=== PATIENT | male | born 1995 | race Two or more races ===

== ENCOUNTER 2018-12-05 11:21 | Emergency (ER) | payer OTHER, SELFPAY ==
[~2018-12-05] VITALS: Ht 185.4 cm; Wt 90.9 kg
[2018-12-05] MEDS ORDERED: ADACEL/BOOSTRIX VACCINE (DIPHTH/PERTUSS/ACELL/TETANUS)0.5ML SYR (90715) IM ONE (17:15)
[2018-12-05] MEDS ORDERED: LIDOCAINE 1% MDV 20ML VIAL IM ONE (17:15)
--- NOTE | 2018-12-05 18:50 | REPVR ---
EXAM: CT Maxillofacial Without Contrast EXAM DATE/TIME: 12/05/2018 6:34 PM CLINICAL HISTORY: 23 years old, male; Jaw pain; Additional info: Jaw pain after fall, struck face/jaw on ground TECHNIQUE: Imaging protocol: Axial computed tomography images of the face without intravenous contrast. Coronal and sagittal reformatted images were created and reviewed. Radiation optimization: All CT scans at this facility use at least one of these dose optimization techniques: automated exposure control; mA and/or kV adjustment per patient size (includes targeted exams where dose is matched to clinical indication); or iterative reconstruction. COMPARISON: No relevant prior studies available. FINDINGS: Orbits: No acute intraorbital abnormality. Globes are unremarkable. Sinuses: Normal. No air-fluid levels. Bones/joints: Fracture and right paramedial aspect of the medial process of the maxilla. Soft tissues: No significant facial soft tissue swelling. IMPRESSION: Fracture and right paramedial aspect of the medial process of the maxilla. Soft tissue swelling upper lip. Electronically signed by: Tonny Coelho On 12/05/2018 18:49:38 PM
--- NOTE | 2018-12-05 18:52 | REPVR ---
EXAM: CT Head Without Contrast EXAM DATE/TIME: 12/05/2018 6:34 PM CLINICAL HISTORY: 23 years old, male; Other: Jaw pain; Additional info: Jaw pain after fall, struck face/jaw on ground TECHNIQUE: Imaging protocol: Axial computed tomography images of the head without contrast. Radiation optimization: All CT scans at this facility use at least one of these dose optimization techniques: automated exposure control; mA and/or kV adjustment per patient size (includes targeted exams where dose is matched to clinical indication); or iterative reconstruction. COMPARISON: No relevant prior studies available. FINDINGS: Brain: Normal. No hemorrhage. Unremarkable white matter. No mass effect. Ventricles: Normal. No ventriculomegaly. Bones/joints: Unremarkable. No acute fracture. Sinuses: Visualized sinuses are unremarkable. No fluid levels. Mastoid air cells: Visualized mastoid air cells are well aerated. No mastoid effusion. Soft tissues: Unremarkable. IMPRESSION: No acute intracranial abnormality. Electronically signed by: Tonny Coelho On 12/05/2018 18:52:23 PM
[2018-12-05] MEDS ORDERED: AUGM875T28 PO (19:46)
[2018-12-05] MEDS ORDERED: NAPR-837 PO (19:46)
[2018-12-05 19:59] VITALS: BP 111/59
== END 2018-12-05 20:01 | disposition home or self-care (01) ==
LOC: M ED 11:21
DX: S02.40CA Maxillary fracture, right side, initial encounter for closed fracture (principal); S01.511A Laceration without foreign body of lip, initial encounter; S02.5XXA Fracture of tooth (traumatic), initial encounter for closed fracture; Y04.8XXA Assault by other bodily force, initial encounter; V00.131A Fall from skateboard, initial encounter; Y92.410 Unspecified street and highway as the place of occurrence of the external cause; F17.200 Nicotine dependence, unspecified, uncomplicated

== ENCOUNTER 2023-12-20 14:58 | Inpatient (IN) | payer MEDICAID, OTHER, SELFPAY ==
[~2023-12-20] VITALS: Ht 188 cm; Wt 82.1 kg
[~2023-12-20 14:58] MED LIST: AUGM875T28 PO; NAPR-837 PO
[2023-12-20 16:17] LABS: HEMATOCRIT 43.3 % (42.0-52.0); HEMOGLOBIN 14.9 g/dl (13.5-17.5); MEAN CORPUSCULAR HEMOGLOBIN 30.6 pg (27.0-33.0); MEAN CORPUSCULAR HGB CONC 34.4 g/dl (32.0-36.5); MEAN CORPUSCULAR VOLUME 88.9 fl (80.0-96.0); PLATELET COUNT, AUTOMATED 211 10^3/uL (150-450); RED BLOOD COUNT 4.87 10^6/uL (4.30-6.10); WHITE BLOOD COUNT 5.9 10^3/uL (4.0-10.0)
[2023-12-20 16:38] LABS: ETHYL ALCOHOL (ETHANOL) < 0.003 % (0.000-0.010)
[2023-12-20 16:39] LABS: SALICYLATE LEVEL < 3.0 MG/DL (<30)
[2023-12-20 16:40] LABS: ALBUMIN 4.2 G/DL (3.2-5.2); ALKALINE PHOSPHATASE 76 U/L (46-116); ALT/SGPT 104 U/L (7.0-40); AST/SGOT 266 U/L (<34); BILIRUBIN,DIRECT 0.1 MG/DL (<0.4); BILIRUBIN,TOTAL 0.4 MG/DL (0.3-1.2); BLOOD UREA NITROGEN 18 MG/DL (9-23); CALCIUM LEVEL 9.8 MG/DL (8.5-10.1); CARBON DIOXIDE LEVEL 28 MMOL/L (20-31); CHLORIDE LEVEL 109 MMOL/L (98-107); CREATININE FOR GFR 0.97 MG/DL (0.70-1.30); GLOMERULAR FILTRATION RATE > 60.0 (>60); GLUCOSE, FASTING 95 MG/DL (60-100); POTASSIUM SERUM 4.1 MMOL/L (3.5-5.1); SODIUM LEVEL 144 MMOL/L (136-145); TOTAL PROTEIN 6.8 G/DL (5.7-8.2)
[2023-12-20 16:41] LABS: THYROID STIMULATING HORMONE 1.185 uIU/ML (0.55-4.78)
[2023-12-20 16:47] LABS: AMPHETAMINES LEVEL URINE NEGATIVE (NEGATIVE); BARBITURATES URINE NEGATIVE (NEGATIVE); COCAINE METABOLITE URINE NEGATIVE (NEGATIVE); METHADONE URINE NEGATIVE (NEGATIVE); OPIATES URINE NEGATIVE (NEGATIVE)
[2023-12-20 16:48] LABS: BENZODIAZEPINES URINE NEGATIVE (NEGATIVE); PHENCYCLIDINE URINE NEGATIVE (NEGATIVE)
[2023-12-20 16:49] LABS: CANNABINOIDS URINE POSITIVE (NEGATIVE)
[2023-12-20] MEDS ORDERED: traZODone 50 MG TAB PO PRN (19:10)
[2023-12-20] MEDS ORDERED: IBUPROFEN 400MG TAB PO PRN (19:10)
[2023-12-20] MEDS ORDERED: ACETAMINOPHEN TAB 650MG DOSE (2X325MG) PO PRN (19:10)
[2023-12-20] MEDS ORDERED: MOM 30ML SUSPENSION UDC PO PRN (19:10)
[2023-12-20] MEDS ORDERED: MAALOX 30 ML SUSP *UDC PO PRN (19:10)
[2023-12-20 19:29] LABS: HEPATITIS B SURFACE ANTIGEN NEGATIVE (NEGATIVE)
[2023-12-20 19:50] LABS: HEPATITIS B CORE ANTIBODY IGM NEGATIVE (NEGATIVE); HEPATITIS C VIRUS ABY INDEX < 0.02 INDEX (<0.8)
[2023-12-20] MEDS ORDERED: HOME MED LIST COMPLETE! XX SCH (22:05)
[2023-12-20 22:38] VITALS: BP 118/71; TEMP 97.1; O2SAT 97
[2023-12-21 06:35] VITALS: BP 144/70; TEMP 97.9; O2SAT 99
[2023-12-21] MEDS: NICOTINE 21MG/24HR 1 EA TRANSDERMAL TD SCH (09:00)
[2023-12-21] MEDS: PALIPERIDONE 3MG ER TAB (INVEGA) PO SCH (11:01)
[2023-12-21 18:57] VITALS: BP 122/78; TEMP 98; O2SAT 100
[2023-12-22] MEDS ORDERED: PALIPERIDONE 3MG ER TAB (INVEGA) As Ordered ONE (10:03)
[2023-12-22] MEDS ORDERED: NICOTINE 21MG/24HR 1 EA TRANSDERMAL As Ordered ONE (10:03)
[2023-12-22] MEDS: PALIPERIDONE PAL 234MG/1.5ML INJ (INVEGA)(FREE PSY INPT ONLY) IM ONE (15:03)
[2023-12-22 17:00] VITALS: BP 131/65; TEMP 98.1; O2SAT 98
[2023-12-22] MEDS: diphenhydrAMINE 25MG CAP PO PRN (22:24)
[2023-12-23 06:22] VITALS: BP 152/70; TEMP 98.6; O2SAT 98
[2023-12-23] MEDS ORDERED: OLANZapine ORAL DISINTEGRATING TAB 5MG PO PRN ×2 (08:35→08:55)
[2023-12-23 18:30] VITALS: BP 126/74; TEMP 98.3; O2SAT 100
[2023-12-23] MEDS: QUEtiapine FUMARATE 50MG TAB PO SCH (21:32)
[2023-12-24 06:16] VITALS: BP 110/57; TEMP 97.1; O2SAT 100
[2023-12-24 17:27] VITALS: BP 135/77; TEMP 97.9; O2SAT 100
[2023-12-25 06:00] VITALS: BP 114/72; TEMP 98.2; O2SAT 99
[2023-12-25 17:57] VITALS: BP 120/73; TEMP 98.1
[2023-12-26 06:24] VITALS: BP 126/61; TEMP 98.4; O2SAT 98
[2023-12-26] MEDS ORDERED: PALIPERIDONE PAL 156MG/1ML INJ(INVEGA)(FREE PSY INPT ONLY) IM ONE (07:50)
[2023-12-26] MEDS: PALIPERIDONE PAL 156MG/1ML INJ(INVEGA)(FREE PSY INPT ONLY) IM ONE (11:51)
[2023-12-26 18:13] VITALS: BP 144/80; TEMP 98.2
[2023-12-27 06:12] VITALS: BP 143/77; TEMP 98.4; O2SAT 98
[2023-12-27] MEDS ORDERED: PALI1TAB2 PO (09:09)
[2023-12-27] MEDS ORDERED: QUET50TA4 PO (09:09)
[2023-12-27] MEDS ORDERED: INVE234I IM (09:10)
== END 2023-12-27 12:38 | disposition home or self-care (01) | DRG 750 ==
LOC: M ED 14:58 → M ED INP 19:08 → M PSY 22:39
PROVIDERS: ADMIT Student in an Organized Health Care Education/Training Program; ATTEND Student in an Organized Health Care Education/Training Program
DX: F20.0 Paranoid schizophrenia (principal); R74.01 Elevation of levels of liver transaminase levels; F17.210 Nicotine dependence, cigarettes, uncomplicated; Z59.00 Homelessness unspecified; Z62.819 Personal history of unspecified abuse in childhood; F43.10 Post-traumatic stress disorder, unspecified; Z81.8 Family history of other mental and behavioral disorders; Z56.0 Unemployment, unspecified; Z87.820 Personal history of traumatic brain injury; Z63.8 Other specified problems related to primary support group

== ENCOUNTER → 2024-01-15 | Outpatient (REF) | payer OTHER, MEDICAID ==
[~2024-01-15] MED LIST changes: +INVE234I IM; +PALI1TAB2 PO; +QUET50TA4 PO
[2024-01-15 18:55] LABS: ALBUMIN 4.2 G/DL (3.2-5.2); ALKALINE PHOSPHATASE 80 U/L (46-116); ALT/SGPT 69 U/L (7.0-40); AST/SGOT 21 U/L (<34); BILIRUBIN,TOTAL 0.5 MG/DL (0.3-1.2); BLOOD UREA NITROGEN 13 MG/DL (9-23); CALCIUM LEVEL 9.7 MG/DL (8.5-10.1); CARBON DIOXIDE LEVEL 29 MMOL/L (20-31); CHLORIDE LEVEL 105 MMOL/L (98-107); CREATININE FOR GFR 0.88 MG/DL (0.70-1.30); GLOMERULAR FILTRATION RATE > 60.0 (>60); GLUCOSE, FASTING 93 MG/DL (60-100); SODIUM LEVEL 139 MMOL/L (136-145); TOTAL PROTEIN 6.9 G/DL (5.7-8.2)
[2024-01-15 19:34] LABS: HEPATITIS C VIRUS ABY INDEX 0.03 INDEX (<0.8)
== END ==
LOC: M LAB REF 16:24
PROVIDERS: ATTEND Family Medicine Addiction Medicine
DX: R74.01 Elevation of levels of liver transaminase levels (principal)